=== PATIENT | female | born 1995 | race African-American/Black ===

== ENCOUNTER 2017-12-15 23:27 | Observation (INO) | payer MEDICAID, OTHER ==
[~2017-12-15] VITALS: Ht 167.6 cm; Wt 88.0 kg
[2017-12-15] MEDS ORDERED: PNV1TABL76 MT (23:41)
[2017-12-16] MEDS ORDERED: DEXT 5%/LR + PITOCIN 20UNITS/L 1,000 ML IV SCH (00:05)
[2017-12-16] MEDS ORDERED: LACTATED RINGERS 1,000 ML IV SCH (00:05)
[2017-12-16] MEDS ORDERED: ACYC200C PO (00:28)
== END 2017-12-16 00:20 | disposition home or self-care (01) ==
LOC: L&D 23:27
PROVIDERS: ADMIT Obstetrics & Gynecology; ATTEND Obstetrics & Gynecology
DX: O42.92 Full-term premature rupture of membranes, unspecified as to length of time between rupture and onset of labor (principal); Z3A.38 38 weeks gestation of pregnancy
CPT/HCPCS: G0378; J7120; 99281